=== PATIENT | female | born 1975 | race Caucasian/White ===

== ENCOUNTER 2018-03-03 17:51 | Emergency (ER) | payer OTHER ==
[~2018-03-03] VITALS: Ht 175.3 cm; Wt 124.7 kg
[2018-03-03 18:25] VITALS: BP_SYST 120
--- NOTE | 2018-03-03 18:30 | NUR ---
Patient triaged and placed in waiting room. VSS and patient appears in no acute distress at this time. Accompanied by self, awaiting available bed, and MD notified of need for MSE.
--- NOTE | 2018-03-03 18:42 | NUR ---
Patient to ER bed 03 to gown for evaluation. Side rails up. Report given to BAMBI Ko
--- NOTE | 2018-03-03 18:54 | NUR ---
ER Dr. Santana at bedside examining patient.
[2018-03-03] MEDS ORDERED: BACITRACIN 1 GM OINT TP ONE (19:00)
--- NOTE | 2018-03-03 19:10 | NUR ---
Pt came into ER found wound check. Pt had small abcess near her umbilicus which was I&D on 03/02/18. Pt's PMD advised her to have her wound check for infection and to access wound healing. Pt's wound shows no signs of infection, purulent drainage or odor. Vital signs are stable no other complaints at this time.
--- NOTE | 2018-03-03 19:27 | NUR ---
Patient given written and verbal discharge instructions and verbalizes understanding. ER MD discussed with patient the results and treatment provided. Patient in stable condition. ID arm band removed. Rx of Bacitracin given. Patient educated on pain management and to follow up with PMD. Pain Scale 0/10. Opportunity for questions provided and answered. Medication side effect fact sheet provided.
[2018-03-03 19:28] VITALS: BP_SYST 120
== END 2018-03-03 19:27 | disposition home or self-care (01) ==
LOC: SED 17:51
DX: Z48.01 Encounter for change or removal of surgical wound dressing (principal); Z88.5 Allergy status to narcotic agent; Z88.6 Allergy status to analgesic agent
CPT/HCPCS: 99282